=== PATIENT | female | born 1935 | race Caucasian/White ===

== ENCOUNTER 2019-11-16 15:56 | Observation (INO) ==
[2019-11-16] MEDS ORDERED: FUROSEMIDE 40 MG/4 ML VIAL IV STA (16:59)
[2019-11-16] MEDS ORDERED: ONDANSETRON 4 MG/2 ML VIAL IM STA (16:59)
[2019-11-16] MEDS ORDERED: ALBUTEROL/IPRATROPIUM 3 ML NEB RESP TX STA (16:59)
[2019-11-16 17:29] LABS: Apearance,Urine CLEAR (Clear); Bilirubin,Urine Negative (Negative); Blood, Urine Negative (Negative); Glucose,Urine (UA) Negative (Negative); Hyaline Casts,Urine 33 /LPF (0-3); Ketones,Urine Negative (Negative); Mucus,Urine Occasional /LPF (Occasional); Nitrite,Urine Negative (Negative); Protein,Urine Negative; RBC,Urine 2 /HPF (0-4); Urine Color Yellow (Yellow); Urine Specific Gravity 1.008 (1.001-1.035); Urine Urobilinogen < 2.0 EU/DL (0.2-1.0)
[2019-11-16] MEDS ORDERED: ONDANSETRON 4 MG/2 ML VIAL IV STA (18:30)
[2019-11-16 18:56] LABS: Basophils # 0.1 10*3/uL (0.0-0.2); Basophils % 0.7 % (0.0-0.8); Eosinophils # 0.5 10*3/uL (0.0-0.87); Eosinophils % 7.8 % (0.00-10.9); Hematocrit 35.8 VOL% (35.7-47.0); Hemoglobin 11.1 GM/DL (12.0-16.0); Immature Granulocytes % 0.1 %; Immature Granulocytes Absolute 0.01 #; Lymphocytes # 2.2 10*3/uL (1.4-4.0); Lymphocytes % 31.5 % (21.3-54.2); Mean Corpuscular Volume 98.1 FL (87-102); Mean Platelet Volume 9.2 FL (9.6-12.0); Monocytes % 6.4 % (1.7-12.7); Neutrophils % 53.5 % (38.7-73.9); Platelet Count 196 T/CUMM (130-400); Red Blood Count 3.65 MC/CUMM (3.8-5.5); Red Cell Distribution Width 15.1 % (9.3-17.3); White Blood Count 6.9 T/CUMM (4-12)
[2019-11-16 19:07] LABS: PT Patient Result 10.6 SECS (9.6-12.2); Partial Thromboplastin Time 29.3 SECS (20.8-36.0)
[2019-11-16 19:23] LABS: Alanine Aminotransferase 10 U/L (13-56); Albumin 3.2 G/DL (3.4-5.0); Alkaline Phosphatase 168 U/L (45-117); Aspartate Amino Transferase 11 U/L (0-37); Blood Urea Nitrogen 25 MG/DL (7-18); Calcium 8.8 MG/DL (8.5-10.1); Estimated Glom Filtration Rate 36 ML/MIN; Glucose 84 MG/DL (74-106); Osmolality,Calculated 277.7 MOS/KG (273-304); Total Protein 6.5 G/DL (6.4-8.3); Troponin I < 0.015 NG/ML (0.00-0.045)
[2019-11-16] MEDS ORDERED: PROMETHAZINE 25 MG TABLET PO PRN (22:54)
[2019-11-16] MEDS ORDERED: diphenhydrAMINE CAP 25 MG CAPSULE PO PRN (22:54)
[2019-11-16] MEDS ORDERED: ACETAMINOPHEN 325 MG TABLET PO PRN (22:54)
[2019-11-16] MEDS ORDERED: guaiFENesin/DM ER 600-30 MG TABLET PO PRN (22:54)
[2019-11-16] MEDS ORDERED: ZALEPLON 5 MG CAPSULE PO PRN (22:54)
[2019-11-16] MEDS ORDERED: ONDANSETRON 4 MG/2 ML VIAL IV PRN (22:54)
[2019-11-16] MEDS ORDERED: DOCUSATE SODIUM 100 MG CAPSULE PO PRN (22:54)
[2019-11-16] MEDS ORDERED: ALBUTEROL 2.5 MG/3 ML NEB RESP TX PRN (22:57)
[2019-11-16] MEDS ORDERED: ALBUTEROL/IPRATROPIUM 3 ML NEB RESP TX PRN (22:57)
[2019-11-16] MEDS: BUDESONIDE 0.5 MG/2 ML NEB RESP TX SCH (23:47)
[2019-11-16 23:58] LABS: ABG Base Excess 8.5 MMOL/L (-2.5-2.5); ABG HCO3 32.2 MMOL/L (20-26); ABG Oxygen Saturation 96.5 % (95-100); ABG PCO2 55.2 MM HG (35-48); ABG TCO2 31.3 MMOL/L (23-27); Allen Test Positive
[2019-11-17] MEDS: ENOXAPARIN 40 MG/0.4 ML SYRINGE SUBCUT SCH (01:39)
[2019-11-17] MEDS: AZITHROMYCIN INJ 500 MG in SODIUM CHLORIDE 0.9% 250 ML IV SCH (01:39)
[2019-11-17] MEDS: cefTRIAXone 1,000 MG in SYRINGE 1 EACH IV SCH (02:51)
[2019-11-17 05:08] LABS: Basophils % 0.6 % (0.0-0.8); Eosinophils # 0.6 10*3/uL (0.0-0.87); Eosinophils % 7.9 % (0.00-10.9); Hematocrit 33.8 VOL% (35.7-47.0); Hemoglobin 10.7 GM/DL (12.0-16.0); Immature Granulocytes % 0.4 %; Immature Granulocytes Absolute 0.03 #; Lymphocytes # 2.5 10*3/uL (1.4-4.0); Lymphocytes % 35.3 % (21.3-54.2); Mean Corpuscular HGB Conc 31.7 GM/DL (32-36); Mean Corpuscular Volume 96.8 FL (87-102); Monocytes % 6.6 % (1.7-12.7); Neutrophils % 49.2 % (38.7-73.9); Platelet Count 189 T/CUMM (130-400); Red Blood Count 3.49 MC/CUMM (3.8-5.5); White Blood Count 7.1 T/CUMM (4-12)
[2019-11-17 05:42] LABS: Calcium 8.8 MG/DL (8.5-10.1); Osmolality,Calculated 279.5 MOS/KG (273-304)
[2019-11-17] MEDS: BUDESONIDE 0.5 MG/2 ML NEB RESP TX SCH ×2 (07:34→19:33)
[2019-11-17] MEDS: PANTOPRAZOLE 40 MG TABLET PO SCH (08:34)
[2019-11-17] MEDS: FUROSEMIDE 40 MG/4 ML VIAL IV SCH ×2 (08:34→16:51)
[2019-11-17] MEDS ORDERED: BIMATOPROST 0.01% OPH SOLN 2.5 ML BOTTLE BOTH EYES SCH (21:00)
[2019-11-17] MEDS ORDERED: traZODone 50 MG TABLET PO SCH (21:00)
[2019-11-17] MEDS ORDERED: DONEPEZIL 5 MG TABLET PO SCH (21:00)
[2019-11-17] MEDS: POTASSIUM CHLORIDE 20 MEQ TABLET PO SCH (21:40)
[2019-11-17] MEDS: GABAPENTIN 300 MG CAPSULE PO SCH (21:40)
[2019-11-18] MEDS: cefTRIAXone 1,000 MG in SYRINGE 1 EACH IV SCH (00:06)
[2019-11-18] MEDS: ENOXAPARIN 40 MG/0.4 ML SYRINGE SUBCUT SCH (00:06)
[2019-11-18] MEDS: AZITHROMYCIN INJ 500 MG in SODIUM CHLORIDE 0.9% 250 ML IV SCH (00:08)
[2019-11-18] MEDS ORDERED: LEVOTHYROXINE 88 MCG TABLET PO SCH (06:00)
[2019-11-18] MEDS: BUDESONIDE 0.5 MG/2 ML NEB RESP TX SCH (07:28)
[2019-11-18] MEDS ORDERED: CITALOPRAM 40 MG TABLET PO SCH (09:00)
[2019-11-18] MEDS ORDERED: ISOSORBIDE MONONITRATE 30 MG TABLET PO SCH (09:00)
[2019-11-18] MEDS ORDERED: allopurinoL 300 MG TABLET PO SCH (09:00)
[2019-11-18] MEDS: FUROSEMIDE 40 MG/4 ML VIAL IV SCH (09:29)
[2019-11-18] MEDS: GABAPENTIN 300 MG CAPSULE PO SCH ×2 (09:30→14:44)
[2019-11-18] MEDS: PANTOPRAZOLE 40 MG TABLET PO SCH (09:31)
[2019-11-18] MEDS: POTASSIUM CHLORIDE 20 MEQ TABLET PO SCH (09:35)
[2019-11-18 12:31] VITALS: BP 116/67
== END 2019-11-18 15:14 | disposition home health service (06) ==
LOC: N.ED 15:56 → N.EDINP 22:54 → INTOOBSV 22:54 → SUATTDRO 22:54 → N.5E 11-17 00:22
PROVIDERS: ADMIT Phlebology; ATTEND Internal Medicine